=== PATIENT | female | born 2000 | race Caucasian/White ===

== ENCOUNTER 2024-04-25 13:25 | Inpatient (IN) | payer OTHER, SELFPAY ==
[~2024-04-25 13:25] MED LIST: Bupivacaine 0.25% HCL 30 ML VIAL ONE; Bupivacaine PF 0.5% 30 ML VIAL ONE
[2024-04-25] MEDS ORDERED: Promethazine HCl 25 MG/ML VIAL IM PRN (21:08)
[2024-04-25] MEDS ORDERED: Oxytocin 30 units/NS 500 ML 500 ML IV SCH ×2 (21:08)
[2024-04-25] MEDS ORDERED: Lidocaine 1% (PF) 30 ML VIAL SC PRN (21:08)
[2024-04-25] MEDS ORDERED: Methylergonovine 0.2 MG/ML VIAL IM PRN (21:08)
[2024-04-25] MEDS ORDERED: Ondansetron PF 4 MG/2 ML Vial IVP PRN (21:08)
[2024-04-25] MEDS ORDERED: hydrALAZINE 20 MG/ML VIAL SLOW IVP PRN (21:08)
[2024-04-25] MEDS ORDERED: Zolpidem Tartrate 5 MG TAB PO PRN (21:08)
[2024-04-25] MEDS ORDERED: HYDROcodone/Acetaminophen 5/325 mg Tablet PO PRN ×2 (21:08)
[2024-04-25] MEDS ORDERED: Acetaminophen 500 MG TAB PO PRN (21:08)
[2024-04-25] MEDS ORDERED: Diphenoxylate HCl/Atropine Tablet PO PRN ×2 (21:08)
[2024-04-25] MEDS ORDERED: fentaNYL 50 mcg/mL 1 mL Vial SLOW IVP PRN (21:08)
[2024-04-25] MEDS ORDERED: Docusate 100 MG CAP PO PRN (21:08)
[2024-04-25] MEDS ORDERED: Misoprostol 200 MCG TAB PR PRN (21:08)
[2024-04-25] MEDS: Misoprostol 100 MCG TAB VAG SCH (21:55)
[2024-04-25 22:21] LABS: Hematocrit 34.6 % (34.9-44.5); Hemoglobin 12.4 g/dL (12.0-15.5); Mean Corpuscular HGB CONC 35.8 g/dL (32.0-36.0); Mean Corpuscular Hemoglobin 31.4 pg (27.0-33.0); Mean Corpuscular Volume 87.6 fL (81.6-98.3); Platelet Count 235 10x3/uL (150-450); RBC Distribution Width 12.6 % (11.5-14.5); Red Blood Cell (RBC) Count 3.95 10x6/uL (3.90-5.03); White Blood Cell (WBC) Count 10.2 10x3/uL (3.5-10.5)
[2024-04-25 23:19] VITALS: BMI 40.1
[2024-04-25 23:26] LABS: HIV (1/2) Antibody/Antigen Non-Reactive (NonReactive); HIV 1/2 INDEX 0.06 S/CO (<1.00); Hep B Surf Ag - L&D Non-Reactive S/CO (NonReactive)
[2024-04-25 23:27] LABS: Syphilis Antibody Nonreactive (Nonreactive); Syphilis Antibody Index 0.03 S/CO (<1.00 Non-Reactive)
[2024-04-26] MEDS: Lactated Ringer's 1,000 ML IV SCH (07:15)
[2024-04-26] MEDS: Oxytocin 30 units/NS 500 ML 500 ML IV SCH (08:26)
[2024-04-26] MEDS: Penicillin G Potassium 5 MILL.UNITS in Sodium Chloride 0.9% 100 ML IVPB SCH (08:27)
[2024-04-26] MEDS: fentaNYL/Ropivacaine Epidural 100 ML ONE (09:46)
[2024-04-26] MEDS ORDERED: Lactated Ringer's 500 ML IV PRN (09:59)
[2024-04-26] MEDS ORDERED: ePHEDrine Sulfate 50 MG/10 ML VIAL SLOW IVP PRN (09:59)
[2024-04-26] MEDS ORDERED: diphenhydrAMINE 50 MG/ML VIAL IVP PRN (09:59)
[2024-04-26] MEDS ORDERED: Moisturizing Cream (Eucerin) 113 GM JAR TOP PRN (09:59)
[2024-04-26] MEDS ORDERED: Ondansetron PF 4 MG/2 ML Vial IVP PRN ×2 (09:59→21:26)
[2024-04-26] MEDS ORDERED: Promethazine HCl 25 MG/ML VIAL IM PRN (09:59)
[2024-04-26] MEDS ORDERED: Acetaminophen 325 MG TAB PO PRN (09:59)
[2024-04-26] MEDS ORDERED: Naloxone HCl 0.4 mg/ml Vial IVP PRN ×2 (09:59)
[2024-04-26] MEDS ORDERED: Communication Order-Pharmacy FS SCH (10:00)
[2024-04-26] MEDS: Penicillin G 2.5 MILL.units 2.5 MILL.UNITS in Premix 1 BAG IVPB SCH (12:24)
[2024-04-26] MEDS: fentaNYL 2 mcg/Ropivacaine 0.2% Epidural 100 ML CADD EPIDURAL SCH (18:47)
[2024-04-26] MEDS ORDERED: HYDROcodone/Acetaminophen 5/325 mg Tablet PO PRN (21:26)
[2024-04-26] MEDS ORDERED: diphenhydrAMINE 25 MG CAP PO PRN (21:26)
[2024-04-26] MEDS ORDERED: Boostrix 0.5 ML (Tdap) VIAL (>/=7 yrs of age) IM ONE (21:26)
[2024-04-26] MEDS ORDERED: Bisacodyl 10 MG SUPP PR PRN (21:26)
[2024-04-26] MEDS ORDERED: Milk Of Magnesia 30 ML UDCUP PO PRN (21:26)
[2024-04-26] MEDS ORDERED: Preparation H Ointment 28 GM TUBE PR PRN (21:26)
[2024-04-26] MEDS ORDERED: Lanolin Ointment 7 GM TUBE TOP PRN (21:26)
[2024-04-26] MEDS ORDERED: Misoprostol 200 MCG TAB VAG PRN (21:26)
[2024-04-26] MEDS ORDERED: hydrALAZINE 20 MG/ML VIAL SLOW IVP PRN (21:26)
[2024-04-26] MEDS ORDERED: Witch Hazel 100 PAD JAR TOP PRN (21:29)
[2024-04-26] MEDS ORDERED: Oxytocin 30 units/NS 500 ML 500 ML IV SCH (21:30)
[2024-04-26] MEDS: Ibuprofen 800 MG TAB PO PRN (22:14)
[2024-04-27] MEDS: Penicillin G Potassium 5 MILL.UNITS VIAL ONE (00:20)
[2024-04-27] MEDS: Erythromycin Base 0.5% Oint 1 GM TUBE ONE (00:21)
[2024-04-27] MEDS: Phytonadione Neonatal 1 MG/0.5 ML AMP ONE (00:21)
[2024-04-27] MEDS: Dexmedetomidine 200 MCG/2 ML VIAL ONE (00:21)
[2024-04-27] MEDS: HYDROcodone/Acetaminophen 5/325 mg Tablet PO PRN (03:26)
[2024-04-27] MEDS: Benzocaine-Menthol 82.5 ML CAN TOP PRN (03:27)
[2024-04-27 03:59] LABS: Hematocrit 31.2 % (34.9-44.5); Hemoglobin 11.3 g/dL (12.0-15.5); Mean Corpuscular HGB CONC 36.2 g/dL (32.0-36.0); Mean Corpuscular Hemoglobin 31.7 pg (27.0-33.0); Mean Corpuscular Volume 87.6 fL (81.6-98.3); Mean Platelet Volume 11.1 fL (7.4-10.4); Platelet Count 216 10x3/uL (150-450); RBC Distribution Width 12.4 % (11.5-14.5); Red Blood Cell (RBC) Count 3.56 10x6/uL (3.90-5.03); White Blood Cell (WBC) Count 14.9 10x3/uL (3.5-10.5)
[2024-04-27] MEDS: Ibuprofen 800 MG TAB PO SCH (05:05)
[2024-04-27] MEDS: Docusate 100 MG CAP PO SCH (09:45)
[2024-04-27] MEDS: Prenatal Vitamin 1 TAB PO SCH (09:45)
[2024-04-27] MEDS: Ferrous Sulfate 325 MG TAB PO SCH (09:48)
[2024-04-27] MEDS: Hepatitis B Vaccine 10 MCG/0.5 ML SYR ONE (19:21)
[2024-04-28 07:25] VITALS: BP 114/59; TEMP 98.2
== END 2024-04-28 12:45 | disposition home or self-care (01) | DRG 807 ==
LOC: CSHLD 19:22 → CSHPP 04-26 23:20
PROVIDERS: ADMIT Obstetrics & Gynecology; ATTEND Obstetrics & Gynecology
PROC: 10E0XZZ Delivery of Products of Conception, External Approach (ICD-10-PCS; principal; 2024-04-26)
PROC: 10907ZC Drainage of Amniotic Fluid, Therapeutic from Products of Conception, Via Natural or Artificial Opening (ICD-10-PCS; 2024-04-26)
PROC: 10H07YZ Insertion of Other Device into Products of Conception, Via Natural or Artificial Opening (ICD-10-PCS; 2024-04-26)
PROC: 0HQ9XZZ Repair Perineum Skin, External Approach (ICD-10-PCS; 2024-04-26)
DX: O99.02 Anemia complicating childbirth (principal); Z37.0 Single live birth; Z3A.39 39 weeks gestation of pregnancy; D64.9 Anemia, unspecified; K21.9 Gastro-esophageal reflux disease without esophagitis; O99.62 Diseases of the digestive system complicating childbirth; Z88.2 Allergy status to sulfonamides; Z88.8 Allergy status to other drugs, medicaments and biological substances; O70.0 First degree perineal laceration during delivery
CPT/HCPCS: 36415; 51702; 85027; 86780; 86850; 86900; 86901; 87340; 87389; J0665; J2540; J2590; J3490; J7120